=== PATIENT | male | born 1955 | race Caucasian/White ===

== ENCOUNTER 2021-03-27 07:17 | Emergency (ER) | payer OTHER ==
[2021-03-27 08:18] LABS: Absolute Lymphocytes (CBC) 1.7 K/uL (0.7-4.9); Basophils % 0.8 % (0-1.3); Hematocrit 33.8 % (39.6-49.0); Lymphocytes % 39.1 % (15.3-44.8); MPV 8.7 fL (7.6-11.3); RBC Red Blood Cell Count 3.82 M/uL (4.33-5.43)
[2021-03-27 08:22] LABS: Protime INR 1.12
[2021-03-27 08:36] LABS: ALT/SGPT 14 U/L (12-78); AST/SGOT 18 U/L (15-37); Albumin 2.9 g/dL (3.4-5.0); Alkaline Phosphatase 73 U/L (45-117); BUN Blood Urea Nitrogen 11 mg/dL (7-18); Bicarbonate 23 mmol/L (21-32); Bilirubin Direct 0.2 mg/dL (0-0.2); Bilirubin Total 0.6 mg/dL (0.2-1.0); Glucose Level 91 mg/dL (74-106); NT PRO-BNP 731 pg/mL (<125); Potassium 3.5 mmol/L (3.5-5.1); Protein, Total 6.6 g/dL (6.4-8.2); Sodium Level 142 mmol/L (136-145); Troponin (Emerg Dept Use Only) < 0.02 ng/mL (0.0-0.045)
--- NOTE | 2021-03-27 10:09 | ER ---
Nurse's Notes [facility] Name: Buck Graham Age: 65 yrs Sex: Male : 1955 Arrival Date: 03/27/2021 Time: 07:20 Bed 4 Private MD: Diagnosis: Cough Presentation: 03/27 07:41 Chief complaint: Patient states: Allergies and bad cough for 1 month. No fever. ll1 Coronavirus screen: Vaccine status: Patient reports receiving the 2nd dose of the covid vaccine. Client denies travel out of the [place] in the last 14 days. cough unrelated to allergies, difficulty breathing, shortness of breath, Client presents with at least one sign or symptom that may indicate coronavirus-19. Standard/surgical mask placed on the client. Ebola Screen: Patient denies travel to an Ebola-affected area in the 21 days before illness onset. Initial Sepsis Screen: Does the patient meet any 2 criteria? No. Patient's initial sepsis screen is negative. Does the patient have a suspected source of infection? Yes: Productive cough/pneumonia. Risk Assessment: Do you want to hurt yourself or someone else? Patient reports no desire to harm self or others. Onset of symptoms was February 25, 2021. 07:41 Method Of Arrival: Ambulatory ll1 07:41 Acuity: SUSY 3 ll1 Historical: - Allergies: 07:47 No Known Allergies; ll1 - PMHx: 07:47 Hypertensive disorder; TIA; CHF; arthritis; ll1 - PSHx: 07:47 hernia repair; gastric bypass; ll1 - Immunization history:: Client reports receiving the 2nd dose of the Covid vaccine, Flu vaccine is up to date. - Social history:: Smoking status: Patient denies any tobacco usage or history of. Patient/guardian denies using alcohol, street drugs, The patient lives with family. - Family history:: not pertinent. Screenin:11 Abuse screen: Denies threats or abuse. Nutritional screening: No deficits noted. ap3 Tuberculosis screening: No symptoms or risk factors identified. Fall Risk None identified. Assessment: 08:10 General: Appears in no apparent distress. comfortable, Behavior is calm, cooperative. ap3 Pain: Denies pain. Neuro: Level of Consciousness is awake, alert, obeys commands, Oriented to person, place, time, situation, Moves all extremities. Speech is normal. Cardiovascular: Patient's skin is warm and dry. Respiratory: Airway is patent Parent/caregiver reports the patient having cough that is. GI: No signs and/or symptoms were reported involving the gastrointestinal system. : No signs and/or symptoms were reported regarding the genitourinary system. EENT: Reports nasal congestion nasal discharge. Musculoskeletal: Swelling present in right leg and left leg. 09:00 Reassessment: No changes from previously documented assessment. Patient and/or family ap3 updated on plan of care and expected duration. Pain level reassessed. Patient is alert, oriented x 3, equal unlabored respirations, skin warm/dry/pink. Vital Signs: 07:41 BP 176 / 100; Pulse 75; Resp 18; Temp 98.5; Pulse Ox 97% on R/A; ll1 08:12 BP 164 / 83; Pulse 73; Resp 18; Pulse Ox 100% on R/A; ap3 09:01 BP 171 / 81; Pulse 62; Resp 17; Pulse Ox 99% on R/A; ap3 09:41 BP 175 / 88; Pulse 61; Pulse Ox 100% on R/A; ap3 ED Course: 07:20 Patient arrived in ED. as 07:34 Kika Segundo MD is Attending Physician. ma2 07:41 Arm band placed on Patient placed in an exam room, on a stretcher. ll1 07:42 Triage completed. ll1 07:53 Lala Mcnally, KATHRINE is Primary Nurse. ap3 08:05 COVID swab sent to lab. Inserted saline lock: 20 gauge in right forearm, using aseptic ap3 technique. Blood collected. 08:11 Patient has correct armband on for positive identification. Bed in low position. Call ap3 light in reach. Side rails up X2. Pulse ox on. NIBP on. Door closed. Noise minimized. Warm blanket given. 09:54 XRAY Chest (1 view) In Process Unspecified. EDMS 10:19 No provider procedures requiring assistance completed. IV discontinued, intact, ap3 bleeding controlled, No redness/swelling at site. Pressure dressing applied. Administered Medications: No medications were administered Outcome: 10:08 Discharge ordered by . ma2 10:19 Discharged to home ambulatory. ap3 10:19 Condition: good 10:19 Discharge instructions given to patient, Instructed on discharge instructions, follow up and referral plans. medication usage, Demonstrated understanding of instructions, follow-up care, medications, Prescriptions given X 2. 10:20 Patient left the ED. ap3 Signatures: Dispatcher [employer] EDMS Ness Ruiz Mohammad, MD MD ma2 Lala Mcnally RN RN ap3 Carlos Witt RN RN ll1
--- NOTE | 2021-03-27 10:09 | EDPHYS ---
Physician Documentation [facility] Name: Buck Graham Age: 65 yrs Sex: Male : 1955 Arrival Date: 03/27/2021 Time: 07:20 Bed 4 Private MD: ED Physician Kika Segundo HPI: 03/27 08:24 This 65 yrs old Male presents to ER via Ambulatory with complaints of cough. ma2 08:24 Onset: The symptoms/episode began/occurred gradually, 1 month(s) ago. Severity of ma2 symptoms: At their worst the symptoms were mild, in the emergency department the symptoms are unchanged. Associated signs and symptoms: Pertinent negatives: diarrhea, ear ache, fever, nausea, rhinorrhea, sore throat, vomiting. The patient has not experienced similar symptoms in the past. Historical: - Allergies: 07:47 No Known Allergies; ll1 - PMHx: 07:47 Hypertensive disorder; TIA; CHF; arthritis; ll1 - PSHx: 07:47 hernia repair; gastric bypass; ll1 - Immunization history:: Client reports receiving the 2nd dose of the Covid vaccine, Flu vaccine is up to date. - Social history:: Smoking status: Patient denies any tobacco usage or history of. Patient/guardian denies using alcohol, street drugs, The patient lives with family. - Family history:: not pertinent. ROS: 08:24 Constitutional: Negative for fever, chills, and weight loss. ma2 08:24 All other systems are negative. Exam: 08:24 Constitutional: This is a well developed, well nourished patient who is awake, alert, ma2 and in no acute distress. Head/Face: Normocephalic, atraumatic. Eyes: Pupils equal round and reactive to light, extra-ocular motions intact. Lids and lashes normal. Conjunctiva and sclera are non-icteric and not injected. Cornea within normal limits. Periorbital areas with no swelling, redness, or edema. ENT: Nares patent. No nasal discharge, no septal abnormalities noted. Tympanic membranes are normal and external auditory canals are clear. Oropharynx with no redness, swelling, or masses, exudates, or evidence of obstruction, uvula midline. Mucous membranes moist. Neck: Trachea midline, no thyromegaly or masses palpated, and no cervical lymphadenopathy. Supple, full range of motion without nuchal rigidity, or vertebral point tenderness. No Meningismus. Chest/axilla: Normal chest wall appearance and motion. Nontender with no deformity. No lesions are appreciated. Cardiovascular: Regular rate and rhythm with a normal S1 and S2. No gallops, murmurs, or rubs. Normal PMI, no JVD. No pulse deficits. Respiratory: Lungs have equal breath sounds bilaterally, clear to auscultation and percussion. No rales, rhonchi or wheezes noted. No increased work of breathing, no retractions or nasal flaring. Abdomen/GI: Soft, non-tender, with normal bowel sounds. No distension or tympany. No guarding or rebound. No evidence of tenderness throughout. Back: No spinal tenderness. No costovertebral tenderness. Full range of motion. Skin: Warm, dry with normal turgor. Normal color with no rashes, no lesions, and no evidence of cellulitis. MS/ Extremity: Pulses equal, no cyanosis. Neurovascular intact. Full, normal range of motion. Neuro: Awake and alert, GCS 15, oriented to person, place, time, and situation. Cranial nerves II-XII grossly intact. Motor strength 5/5 in all extremities. Sensory grossly intact. Cerebellar exam normal. Normal gait. Vital Signs: 07:41 BP 176 / 100; Pulse 75; Resp 18; Temp 98.5; Pulse Ox 97% on R/A; ll1 08:12 BP 164 / 83; Pulse 73; Resp 18; Pulse Ox 100% on R/A; ap3 09:01 BP 171 / 81; Pulse 62; Resp 17; Pulse Ox 99% on R/A; ap3 09:41 BP 175 / 88; Pulse 61; Pulse Ox 100% on R/A; ap3 MDM: 07:34 Patient medically screened. mt2 08:24 Differential Diagnosis: Bronchitis Upper Respiratory Infection Sinusitis Pharyngitis. ma2 10:07 Data reviewed: vital signs, nurses notes. Counseling: I had a detailed discussion with ma2 the patient and/or guardian regarding: the historical points, exam findings, and any diagnostic results supporting the discharge/admit diagnosis, the presence of at least one elevated blood pressure reading (>120/80) during this emergency department visit, the need for outpatient follow up. Response to treatment: the patient's symptoms have markedly improved after treatment. 03/27 07:44 Order name: Basic Metabolic Panel; Complete Time: 08:51 03/27 07:44 Order name: CBC with Diff; Complete Time: 08:51 03/27 07:44 Order name: LFT's; Complete Time: 08:51 03/27 07:44 Order name: Magnesium; Complete Time: 08:51 03/27 07:44 Order name: NT PRO-BNP; Complete Time: 08:51 03/27 07:44 Order name: PT-INR; Complete Time: 08:51 03/27 07:44 Order name: Troponin (emerg Dept Use Only); Complete Time: 08:51 03/27 07:44 Order name: XRAY Chest (1 view) [facility] 03/27 07:44 Order name: EKG; Complete Time: 07:46 03/27 07:44 Order name: Cardiac monitoring; Complete Time: 08:12 03/27 07:44 Order name: EKG - Nurse/Tech; Complete Time: 08:12 03/27 07:44 Order name: IV Saline Lock; Complete Time: 08:12 03/27 07:52 Order name: SARS-COV-2 RT PCR (Document "Date of Onset" if Symptomatic) iw 03/27 07:44 Order name: Labs collected and sent; Complete Time: 08:12 03/27 07:44 Order name: O2 Per Protocol; Complete Time: 07:53 03/27 07:44 Order name: O2 Sat Monitoring; Complete Time: 07:53 ma2 Administered Medications: No medications were administered Disposition Summary: 03/27/21 10:08 Discharge Ordered Location: Home ma2 Condition: Stable ma2 Diagnosis - Cough ma2 Followup: ma2 - With: Private Physician - When: Tomorrow - Reason: If symptoms return, Continuance of care Discharge Instructions: - Discharge Summary Sheet ma2 - Cough, Adult, [id number] ma2 Forms: - Medication Reconciliation Form ma2 - Thank You Letter ma2 - Antibiotic Education ma2 - Prescription Opioid Use ma2 Prescriptions: - Lasix 20 mg Oral Tablet - take 1 tablet by ORAL route once daily; 20 tablet; Refills: 0, Product ma2 Selection Permitted - Zithromax Z-Derik 250 mg Oral Tablet - take 1 tablet by ORAL route as directed for 5 days Day 1 - take two (2) tablets ma2 one time. Day 2, 3, 4 , 5 take one (1) tablet once daily.; 6 tablet; Refills: 0, Product Selection Permitted - Medrol (Derik) 4 mg Oral Tablets, Dose Pack - take 1 tablet by ORAL route as directed - follow package instructions; 1 ma2 packet; Refills: 0, Product Selection Permitted Signatures: Dispatcher [employer] EDKika Jhaveri MD MD ma2 Carlos Witt RN RN ll1
--- NOTE | 2021-03-27 10:23 | RAD REPORT ---
EXAM DESCRIPTION: RAD - Chest Single View - 03/27/2021 9:54 am CLINICAL HISTORY: CONGESTION COMPARISON: CHEST SINGLE VIEW dated 09/29/2008; CHEST PA AND LAT 2 VIEW dated 07/13/2008; CHEST PA AND LAT 2 VIEW dated 03/28/2006 FINDINGS: Lines: None. Lungs: Patchy ill-defined bilateral airspace disease. Pleural: No significant pleural effusions or pneumothorax. Cardiac: Cardiomegaly. Bones: No acute fractures. Other: IMPRESSION: Patchy ill-defined airspace opacities bilaterally could reflect mild pneumonia.
[2021-03-27 10:28] VITALS: TEMP 98.5
[2021-03-27 10:33] VITALS: BP 175/88; O2SAT 100
--- NOTE | 2021-03-28 14:24 | EKG ---
Test Date: 2021-03-27 Test Time: 08:09:24 Image Archivist: KEYA MEASUREMENT RESULTS: Intervals: Rate: 63 DE: 136 QRSD: 94 QT: 388 QTc: 397 [place]: P: 19 DE: 136 QRS: -15 T: 25 INTERPRETIVE STATEMENTS: Normal sinus rhythm Incomplete right bundle branch block Minimal voltage criteria for LVH, may be normal variant Borderline ECG Compared to ECG 07/13/2008 16:56:25 Left ventricular hypertrophy now present Electronically Signed On 03-28-21 14:21:50 CDT by Campos Mcqueen
== END 2021-03-27 10:20 | disposition home or self-care (01) ==
LOC: ER 07:17
DX: R05.9 Cough, unspecified (principal); Z20.822 Contact with and (suspected) exposure to COVID-19; I10 Essential (primary) hypertension
CPT/HCPCS: 93005; 85025; 80048; 36415; 83735; 85610; 80076; 84484; 83880; 71045; 99284; U0003